=== PATIENT | female | born 1985 | race Caucasian/White ===

== ENCOUNTER 2023-02-19 11:25 | Observation (INO) | payer SELFPAY ==
[2023-02-19] MEDS ORDERED: Dexamethasone 10 MG/ML VIAL ONE (12:05)
[2023-02-19] MEDS ORDERED: Ipratropium/Albuterol 3 ML NEB ONE ×2 (12:06→12:46)
[2023-02-19] MEDS ORDERED: Magnesium 2 GM/50 ML BAG (IN WATER) ONE (12:46)
[2023-02-19 12:59] LABS: #Eosinphils 0.2 thou/uL (0.0-0.7); #Monocytes 0.7 thou/uL (0.11-0.59); #Neutrophils 5.8 thou/uL (1.40-6.50); %Basophils 0.3 % (0.0-1.0); %Eosinophils 2.2 % (0.0-10.0); %Lymphocytes 24.9 % (21.0-51.0); %Monocytes 7.5 % (0.0-10.0); %Neutrophils 64.8 % (42.0-75.0); Hematocrit 42.8 % (36.0-47.0); Hemoglobin 14.4 g/dL (12.0-16.0); Mean Corpuscular HGB CONC 33.6 g/dL (32.0-36.0); Mean Corpuscular Hemoglobin 28.5 pg (27.0-31.0); Mean Corpuscular Volume 84.6 fl (78.0-98.0); Platelet Count 255 10x3/uL (130-400); Red Blood Cell (RBC) Count 5.06 mill/uL (4.20-5.40)
[2023-02-19 13:25] LABS: ALT (SGPT) 18 U/L (8-55); AST (SGOT) 19 U/L (5-34); Albumin 3.9 g/dL (3.5-5.0); Alkaline Phosphatase 146 U/L (40-110); Anion Gap 16 mmol/L (10-20); BUN (Urea Nitrogen) 7 mg/dL (7.0-18.7); Bilirubin, Total 0.2 mg/dL (0.2-1.2); Calc. Creatinine Clearance 0 mL/min (70-130); Calcium 9.2 mg/dL (7.8-10.44); Carbon Dioxide 24 mmol/L (22-29); Chloride 98 mmol/L (98-107); Estimated GFR 103; Globulin 3.6 g/dL (2.4-3.5); Glucose 361 mg/dL (70-105); Protein, Total 7.5 g/dL (6.0-8.3); Sodium 134 mmol/L (136-145)
[2023-02-19] MEDS ORDERED: Glucagon 1 MG/ML KIT IM PRN (14:03)
[2023-02-19] MEDS ORDERED: Insulin Regular 300 UNITS/3 ML VIAL SC PRN (14:03)
[2023-02-19] MEDS ORDERED: Dextrose 50% Abboject 50 ML SYRINGE SLOW IVP PRN (14:03)
[2023-02-19] MEDS ORDERED: Dextrose 5% in Water 1,000 ML IV PRN (14:03)
[2023-02-19] MEDS ORDERED: Ipratropium/Albuterol 3 ML NEB NEB PRN (14:14)
[2023-02-19 14:30] LABS: Hemoglobin A1c 10.9 % (4.0-6.0)
[2023-02-19] MEDS ORDERED: Ondansetron ODT 4 MG TAB PO PRN (14:40)
[2023-02-19] MEDS ORDERED: Acetaminophen 325 MG TAB PO PRN (14:40)
[2023-02-19] MEDS ORDERED: Ondansetron PF 4 MG/2 ML Vial IVP PRN (14:40)
[2023-02-19] MEDS ORDERED: Calcium Carbonate 500 MG ChewTAB PO PRN (14:40)
[2023-02-19 14:59] VITALS: BMI 47.6
[2023-02-19] MEDS: Ipratropium/Albuterol 3 ML NEB NEB SCH ×3 (15:33→23:17)
[2023-02-19] MEDS: glipiZIDE 5 MG TAB PO SCH (16:11)
[2023-02-19] MEDS: metFORMIN 500 MG TAB PO SCH (16:11)
[2023-02-19] MEDS: Insulin Regular 300 UNITS/3 ML VIAL SC PRN ×2 (17:28→21:04)
[2023-02-19] MEDS: methylPREDNISolone Sod Succ 40 MG VIAL IVP SCH ×2 (17:29→23:39)
[2023-02-19] MEDS ORDERED: methylPREDNISolone Sod Succ 40 MG VIAL IVP SCH (18:00)
[2023-02-19] MEDS: Famotidine 20 MG TAB PO SCH (20:17)
[2023-02-19] MEDS ORDERED: Loratadine 10 MG TAB PO SCH (21:00)
[2023-02-20] MEDS: Ipratropium/Albuterol 3 ML NEB NEB SCH ×6 (02:18→22:58)
[2023-02-20] MEDS: Insulin Regular 300 UNITS/3 ML VIAL SC PRN ×4 (05:19→20:15)
[2023-02-20] MEDS: methylPREDNISolone Sod Succ 40 MG VIAL IVP SCH ×2 (05:19→12:31)
[2023-02-20 05:48] LABS: #Monocytes 0.3 thou/uL (0.11-0.59); #Neutrophils 9.3 thou/uL (1.40-6.50); %Basophils 0.2 % (0.0-1.0); %Lymphocytes 10.4 % (21.0-51.0); %Monocytes 2.9 % (0.0-10.0); %Neutrophils 86.1 % (42.0-75.0); Hematocrit 40.9 % (36.0-47.0); Hemoglobin 13.5 g/dL (12.0-16.0); Mean Corpuscular Hemoglobin 27.9 pg (27.0-31.0); Mean Corpuscular Volume 84.5 fl (78.0-98.0); Mean Platelet Volume 8.8 fL (7.4-10.4); Platelet Count 241 10x3/uL (130-400); Red Blood Cell (RBC) Count 4.84 mill/uL (4.20-5.40); White Blood Cell (WBC) Count 10.8 10x3/uL (4.8-10.8)
[2023-02-20 06:28] LABS: Anion Gap 16 mmol/L (10-20); BUN (Urea Nitrogen) 9 mg/dL (7.0-18.7); Calc. Creatinine Clearance 237 mL/min (70-130); Carbon Dioxide 21 mmol/L (22-29); Chloride 100 mmol/L (98-107); Estimated GFR 114; Glucose 300 mg/dL (70-105); Magnesium 1.9 mg/dL (1.6-2.6); Potassium 4.2 mmol/L (3.5-5.1); Sodium 133 mmol/L (136-145)
[2023-02-20] MEDS ORDERED: diphenhydrAMINE 25 MG CAP PO PRN ×2 (08:29→08:34)
[2023-02-20] MEDS ORDERED: ALPRAZolam 0.25 MG TAB PO PRN (08:29)
[2023-02-20] MEDS ORDERED: CYCLOSPORINE 100 MG PO SCH (08:30)
[2023-02-20] MEDS: glipiZIDE 5 MG TAB PO SCH ×2 (08:48→15:00)
[2023-02-20] MEDS: metFORMIN 500 MG TAB PO SCH ×2 (08:48→17:14)
[2023-02-20] MEDS: Famotidine 20 MG TAB PO SCH ×2 (08:49→20:14)
[2023-02-20] MEDS: cycloSPORINE, Modified 100 MG CAP PO SCH ×2 (08:49→20:14)
[2023-02-20] MEDS: Loratadine 10 MG TAB PO SCH (08:49)
[2023-02-20] MEDS: Insulin NPH Human Isophane 100 UNITS/ML (10 ML VIAL) SC SCH ×2 (08:50→20:14)
[2023-02-20] MEDS: diphenhydrAMINE 25 MG CAP PO SCH ×2 (08:56→20:14)
[2023-02-20] MEDS: BuPROPion XL 150 MG ER.TAB PO SCH (08:56)
[2023-02-20] MEDS: Lisinopril 5 MG TAB PO SCH (08:56)
[2023-02-20] MEDS ORDERED: NORETHINDRONE 0.35 MG PO SCH ×2 (09:00)
[2023-02-20] MEDS ORDERED: Non-Formulary Item 1 EACH (Omeprazole [Omeprazole] 20 MG Capsule.Dr) PO SCH (09:00)
[2023-02-20] MEDS: busPIRone HCl 5 MG TAB PO SCH ×2 (12:31→21:39)
[2023-02-20] MEDS ORDERED: Non-Formulary Item 1 EACH (Buspirone Hcl [Buspirone Hcl] 7.5 MG Tablet) PO SCH (14:00)
[2023-02-20] MEDS ORDERED: Simvastatin 10 MG TAB PO SCH (21:00)
[2023-02-21] MEDS: Ipratropium/Albuterol 3 ML NEB NEB SCH ×4 (03:20→14:15)
[2023-02-21] MEDS: Insulin Regular 300 UNITS/3 ML VIAL SC PRN ×2 (05:36→13:58)
[2023-02-21] MEDS: busPIRone HCl 5 MG TAB PO SCH ×2 (05:36→13:59)
[2023-02-21] MEDS ORDERED: predniSONE 50 MG TAB PO SCH (08:00)
[2023-02-21 08:30] VITALS: TEMP 98.1
[2023-02-21] MEDS: diphenhydrAMINE 25 MG CAP PO SCH (09:38)
[2023-02-21] MEDS: Famotidine 20 MG TAB PO SCH (09:39)
[2023-02-21] MEDS: glipiZIDE 5 MG TAB PO SCH (09:39)
[2023-02-21] MEDS: Loratadine 10 MG TAB PO SCH (09:39)
[2023-02-21] MEDS: BuPROPion XL 150 MG ER.TAB PO SCH (09:39)
[2023-02-21] MEDS: Lisinopril 5 MG TAB PO SCH (09:39)
[2023-02-21] MEDS: metFORMIN 500 MG TAB PO SCH (09:40)
[2023-02-21] MEDS: cycloSPORINE, Modified 100 MG CAP PO SCH (09:41)
[2023-02-21] MEDS: Insulin NPH Human Isophane 100 UNITS/ML (10 ML VIAL) SC SCH (09:42)
[2023-02-21 12:39] VITALS: BP 142/85
== END 2023-02-21 15:30 | disposition home or self-care (01) ==
LOC: ERS 11:25 → T4-B 14:05
PROVIDERS: ADMIT Internal Medicine; ATTEND Family Medicine
DX: J96.01 Acute respiratory failure with hypoxia (principal); J45.901 Unspecified asthma with (acute) exacerbation; R07.89 Other chest pain; E87.1 Hypo-osmolality and hyponatremia; E11.65 Type 2 diabetes mellitus with hyperglycemia; I82.409 Acute embolism and thrombosis of unspecified deep veins of unspecified lower extremity; E66.01 Morbid (severe) obesity due to excess calories; Z68.42 Body mass index [BMI] 45.0-49.9, adult; Z79.4 Long term (current) use of insulin; Z79.84 Long term (current) use of oral hypoglycemic drugs; Z79.899 Other long term (current) drug therapy
CPT/HCPCS: 36415; 36416; 71045; 80048; 80053; 83036; 83735; 85025; 94640; 94760; 96365; 96372; 96375; 96376; G0378; J1100; J1650; J1815; J2920; J3475; J7502; J7512; J7620